=== PATIENT | male | born 1990 | race Caucasian/White ===

== ENCOUNTER 2023-10-21 06:09 | Emergency (ER) | payer OTHER ==
[~2023-10-21] VITALS: Ht 175.3 cm; Wt 118.8 kg
[2023-10-21 06:28] VITALS: BP 143/89; PULSE 75; RESP 14; TEMP 98.3; O2SAT 88
[2023-10-21] MEDS: FLUORESCEIN OPTH STRIP 1 MG OP ONE (07:23)
[2023-10-21 08:22] VITALS: BP 138/82; PULSE 78; RESP 14; TEMP 98.3; O2SAT 88
== END 2023-10-21 08:24 | disposition home or self-care (01) ==
LOC: MED 06:09
DX: H57.12 Ocular pain, left eye (principal); H02.844 Edema of left upper eyelid
CPT/HCPCS: 99284